=== PATIENT | male | born 1970 ===

== ENCOUNTER 2016-06-05 20:50 | Emergency (ER) | payer SELFPAY ==
[2016-06-05 22:03] VITALS: BP 145/88; PULSE 60; RESP 14; TEMP 98; O2SAT 99
--- NOTE | 2016-06-05 23:04 | C.PDOC ---
History Of Present Illness 46 year old patient presents to the ED complaining of left eye irritation for the past 4 days. Patient states he has an itching and burning sensation. Patient denies any trauma, injury, purulent discharge, or vision change. Time Seen by Provider: 06/05/16 22:25 Chief Complaint (Nursing): Eye Problem History Per: Patient History/Exam Limitations: no limitations Onset/Duration Of Symptoms: Days (4) Current Symptoms Are (Timing): Still Present Injury To Eye?: No Severity: Mild Pain Scale Rating Of: 3 Quality: "Pain" Associated Symptoms: Pain, Itching Recent travel outside of the [place]: No Past Medical History Reviewed: Historical Data, Nursing Documentation, Vital Signs Vital Signs: Last Vital Signs Temp 98 F 06/05/16 21:58 Pulse 60 06/05/16 21:58 Resp 14 06/05/16 21:58 BP 145/88 06/05/16 21:58 Pulse Ox 99 06/05/16 23:39 Family History: States: Unknown Family Hx - Social History Hx Alcohol Use: No Hx Substance Use: No - Immunization History Hx Tetanus Toxoid Vaccination: Yes Hx Influenza Vaccination: Yes Hx Pneumococcal Vaccination: No Review Of Systems Except As Marked, All Systems Reviewed And Found Negative. Eyes: Positive for: Pain. Negative for: Vision Change, Other (purulent discharge) Physical Exam - Physical Exam Appears: Non-toxic, No Acute Distress Skin: Warm, Dry Head: Atraumatic, Normacephalic Eye(s): bilateral: EOMI, right: Normal Inspection, left: Other ((+)thick membrane covering left eye nasal conjunctival area extending over to the lateral cornea (-)crusting at the base (+)normal conjunctiva) Ear(s): Bilateral: Normal Throat: Normal ED Course And Treatment O2 Sat by Pulse Oximetry: 99 (RA) Pulse Ox Interpretation: Normal Progress Note: visual acuity: 20/40 OU. Patient is instructed to follow up with opthamologist. Return if symptoms worsen. Disposition Counseled Patient/Family Regarding: Diagnosis, Need For Followup, Rx Given - Disposition Referrals: Morgan Almeida MD [Staff Provider] - Disposition: HOME/ ROUTINE Disposition Time: 23:02 Condition: GOOD Additional Instructions: Please follow up with Eye doctor Use drops as prescribed Return to ER if worse Prescriptions: Olopatadine 0.1% Opht [Patanol 5 Ml] 1 drop OP BID #1 bottle Instructions: Pterygium (ED) - Clinical Impression Clinical Impression: Pterygium of left eye - PA / [employer] / Resident Statement MD/DO has reviewed & agrees with the documentation as recorded. - Scribe Statement The provider has reviewed the documentation as recorded by the Scribe Shira Davenport All medical record entries made by the Scribe were at my direction and personally dictated by me. I have reviewed the chart and agree that the record accurately reflects my personal performance of the history, physical exam, medical decision making, and the department course for this patient. I have also personally directed, reviewed, and agree with the discharge instructions and disposition.
== END 2016-06-05 23:09 | disposition home or self-care (01) ==
LOC: C.ER 20:50
DX: H11.002 Unspecified pterygium of left eye (principal)